=== PATIENT | female | born 1945 | race African-American/Black ===

== ENCOUNTER 2021-08-02 18:02 | Inpatient (IN) | payer MEDICARE, MEDICAID ==
[~2021-08-02] VITALS: Ht 180.3 cm; Wt 148.3 kg
--- NOTE | ~2021-08-02 | EMS ---
[address] [address] EMS Patient Care Report Name: TAHIRA VARMA Room: [address]#: [id number] Admission: 08/02/21 Attend Phys: Maya Agosto MD Discharge: 08/03/21 Date of : 43 Report #: [id number] THIS REPORT FOR: //name// Report Transmitted: 08/04/2021 16:35 EMS Care Summary MERRITT PEARSON Incident [id number] @ 08/02/2021 17:14 Incident Location [address] [place] [address] Patient TOYA VARMA Female, 75 Years 1945 Patient Address [address] [place] [address] Patient History Chronic Obstructive Pulmonary Disease (COPD),Endocrine Condition - Other,Primary osteoarthritis of other joints,Obesity, unspecified,Atrial Fibrillation,Anxiety disorder, unspecified, Patient Allergies , Patient Medications Amlodipine, Aspirin, Gabapentin, Furosemide, Xanax, Chief Complaint Chest Pain Disposition Transported No Lights/[place] Dispatch Reason Chest Pain (Non-Traumatic) Transported To [facility] Narrative [facility] WAS DISPATCHED TO THE LISTED LOCAL ADDRESS FOR CHEST PAIN. ON SCENE, WE CONTACTED FACILITY STAFF AND THE PATIENT INSIDE THE PATIENTS ROOM. [address] [address] EMS Patient Care Report Name: TAHIRA VARMA Room: [address]#: [id number] Admission: 08/02/21 Attend Phys: Maya Agosto MD Discharge: 08/03/21 Date of : 43 Report #: [id number] THE PATIENT WAS ALERT AND LAYING SUPINE IN BED WITH NO OBVIOUS IMMEDIATE LIFE THREATS HOWEVER AUDIBLE CRACKLES COULD BE HEARD. THE PATIENT WAS RECEIVING OXYGEN VIA NASAL cannula AND CONCENTRATOR. FACILITY STAFF PROVIDED A PATIENT PACKET AND STATED THE PATIENT STARTED HAVING CHEST PAIN AROUND 4:00PM. STAFF STATED THE PATIENT HAS SEVERE ANXIETY AND WHEN THIS HAPPENS HER XANEX WILL USUALLY CALM HER DOWN AND MAKE THE CHEST PAIN GO AWAY BUT THIS TIME IT DID NOT. WHEN ASKED ABOUT THE OXYGEN AND THE CRACKLES, STAFF STATED THE patient IS ALWAYS ON TWO LITERS (2 lpm)BUT HER OXYGEN LEVELS HAVE BEEN IN THE LOW 90S. I ASKED STAFF IF THEY HAD INCREASED THE PATIENTS oxygen TO WHICH SHE REPLIED "NO." I HAD FACILITY STAFF INCREASE THE PATIENTS OXYGEN TO FOUR LITERS (4 LPM) WHILE THE PATIENT WAS PLACED ON THE MONITOR. AN ECG WAS OBTAINED AND ASA WAS ADMINISTERED. THE PATIENT WAS INITIALLY UNSURE IF SHE WANTED TO GO TO THE HOSPITAL. IT WAS DETERMINED SHE WOULD BE TRANSPORTED TO THE LISTED LOCAL HOSPITAL FOR FURTHER EVALUATION. USING THE patients BED SHEET, [facility] AND FACILITY STAFF MOVED THE patient OFF HER BED AND ONTO THE STRETCHER WITHOUT INCIDENT. HER NASAL CANNULA WAS ATTACHED TO THE STRETCHERS OXYGEN SUPPLY. THE PATIENT WAS SECURES WITH THE LAP AND SHOULDER BELTS AND TRANSPORTED OUT TO THE AMBULANCE. SHE WAS LOADED AND SECURED WITHOUT INCIDENT. INSIDE THE AMBULANCE, THE PATIENT WAS PLACED BACK ON THE MONITOR. A FULL SET OF VITALS AND LUNG SOUNDS WERE OBTAINED. A PHYSICAL ASSESSMENT WAS COMPLETE. THE PATIENT DENIED ANY DIZZINESS, TINGLING/NUMBNESS IN HER EXTREMITIES, VISION IMPAIRMENTS, NAUSEA, AND PAIN OUTSIDE OF WHAT IS ALREADY STATED. THE PATIENT STATED HAS HAD A HEADACHE FOR THE LAST FEW DAYS AND IS HAVING DIFFICULTY CATCHING HER BREATH. THE PATEINT STATED SHE HAS HAD A PRODUCTIVE COUGH. AN A&A TREATMENT WAS ADMINISTERED AND TRANSPORT WAS INITIATED. VITALS WERE MONITORED EN-ROUTE. PATIENT DEMOGRAPHICS AND MEDICAL history WERE OBTAINED. THE PATIENT REMAINED STABLE DURING TRANSPORT. ONCE THE A&A TREATMENT WAS COMPLETE, THE PATIENT WAS PLACED BACK ON OXYGEN VIA NASAL CANNULA. AT DESTINATION, ALL MONITORING WAS REMOVED. THE patient SIGNED THE PRIVACY AND TRANSFER FORM. SHE WAS UNLOADED FROM THE AMBULANCE AND TAKEN INTO ROOM THREE (3). USING THE STRETCHERS BLANKET, [facility] CRE[facility] AND HOSPITAL STAFF MOVED THE patient OFF THE STRETCHER, ONTO THE HOSPITAL BED WITHOUT INCIDENT. THE PATIENT NASAL CANNULA WAS CONNECTED TO THE HOSPITALS OXYGEN SUPPLY. I GAVE EDIN GREY A VERBAL PATIENT REPORT. SHE SIGNED THE RECEIVING FACILITY FORM, COMPLETING THE transfer OF CARE. [facility] CLEARED THE CALL. Initial Vitals @17:43Pain: 12/10, @17:53Pain: 07/12, @17:24SpO2: 95, @17:34SpO2: 93, @17:37SpO2: 95, @17:39SpO2: 100, @17:44SpO2: 100, @17:47SpO2: 100, @17:53SpO2: 97, [place] [address] EMS Patient Care Report Name: TAHIRA VARMA Room: [address] IN [facility]#: [id number] Admission: 08/02/21 Attend Phys: Maya Agosto MD Discharge: 08/03/21 Date of : 43 Report #: [id number] @17:22 @17:37P: 89,R: 18,BP: 126/67, @17:47P: 81,R: 18,BP: 130/60, @17:53P: 84,R: 18,BP: 114/80, @17:37GCS: 15, @17:47GCS: 15, @17:53GCS: 15, Assessments @17:18MENTAL:SKIN:HEENT:LUNG SOUNDS:ABDOMEN:PELVIS//GI:EXTREMITIES:PULSE:NEURO: Impression Angina pectoris Procedures @17:22 Aspirin - 243.000 Milligrams (mg) - Oral Response: Unchanged @17:37 Albuterol - 2.500 Milligrams (mg) - Inhalation Response: Improved @17:37 Ipratropium - 0.020 Milligrams (mg) - Inhalation Response: Improved @PTAOxygen Complications: , @17:37 Oxygen Complications: , Response: Improved @17:47 Oxygen Complications: , Response: Unchanged @17:22 12-Lead ECG Response: UnchangedSucceeded 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,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 Complications: ,, 16:00,Call Received 17:14,Dispatch Notified 17:14,Psap Call 17:14,Dispatched 17:15,En Route 17:17,On Scene 17:18,At Patient 17:22,Aspirin - 243.000 Milligrams (mg) - Oral,Response: Unchanged 17:22,12-Lead ECG,Response: UnchangedSucceeded, 17:22,BP: / M,PULSE: ,RR: R,SPO2: Ox,ETCO2: ,BG: ,PAIN: ,GCS: , 17:24,BP: / M,PULSE: ,RR: R,SPO2: 95 Ox,ETCO2: ,BG: ,PAIN: ,GCS: , 17:34,BP: / M,PULSE: ,RR: R,SPO2: 93 Ox,ETCO2: ,BG: ,PAIN: ,GCS: , 17:37,Albuterol - 2.500 Milligrams (mg) - Inhalation,Response: Improved 17:37,Ipratropium - 0.020 Milligrams (mg) - Inhalation,Response: Improved 17:37,Oxygen Complications: ,,Response: Improved 17:37,BP: / M,PULSE: ,RR: R,SPO2: 95 Ox,ETCO2: ,BG: ,PAIN: ,GCS: , 17:37,BP: 126/67 M,PULSE: 89,RR: 18 R,SPO2: Ox,ETCO2: ,BG: ,PAIN: ,GCS: , 17:37,BP: / M,PULSE: ,RR: R,SPO2: Ox,ETCO2: ,BG: ,PAIN: ,GCS: 15, 17:38,[place] [address] EMS Patient Care Report Name: VARMATAHIRA Room: [address]#: [id number] Admission: 08/02/21 Attend Phys: Maya Agosto MD Discharge: 08/03/21 Date of : 43 Report #: [id number] 17:39,BP: / M,PULSE: ,RR: R,SPO2: 100 Ox,ETCO2: ,BG: ,PAIN: ,GCS: , 17:43,BP: / M,PULSE: ,RR: R,SPO2: Ox,ETCO2: ,BG: ,PAIN: 6,GCS: , 17:44,BP: / M,PULSE: ,RR: R,SPO2: 100 Ox,ETCO2: ,BG: ,PAIN: ,GCS: , 17:47,Oxygen Complications: ,,Response: Unchanged 17:47,BP: / M,PULSE: ,RR: R,SPO2: 100 Ox,ETCO2: ,BG: ,PAIN: ,GCS: , 17:47,BP: 130/60 M,PULSE: 81,RR: 18 R,SPO2: Ox,ETCO2: ,BG: ,PAIN: ,GCS: , 17:47,BP: / M,PULSE: ,RR: R,SPO2: Ox,ETCO2: ,BG: ,PAIN: ,GCS: 15, 17:53,BP: / M,PULSE: ,RR: R,SPO2: Ox,ETCO2: ,BG: ,PAIN: 1,GCS: , 17:53,BP: / M,PULSE: ,RR: R,SPO2: 97 Ox,ETCO2: ,BG: ,PAIN: ,GCS: , 17:53,BP: 114/80 M,PULSE: 84,RR: 18 R,SPO2: Ox,ETCO2: ,BG: ,PAIN: ,GCS: , 17:53,BP: / M,PULSE: ,RR: R,SPO2: Ox,ETCO2: ,BG: ,PAIN: ,GCS: 15, 17:59,At Destination 18:18,Call Closed Disclaimer v1.1 Copyright 2021 [employer] This EMS Care Summary contains data elements from the applicable legal record (which may be displayed differently). It is designed to provide pertinent information for the following purposes: continuity of care, clinical quality, and state data reporting. The complete legal record is available to ED staff and administrators of the receiving hospital in [employer] Patient Tracker. All data is provided "as is."
[2021-08-02 18:10] VITALS: BP 115/54
[2021-08-02] MEDS ORDERED: APAP W/CODEINE1 TA2 PO (18:20)
[2021-08-02] MEDS ORDERED: NORVASC5 MG PO (18:20)
[2021-08-02] MEDS ORDERED: ASA81BEC PO (18:20)
[2021-08-02] MEDS ORDERED: SLOW FE142 MG PO (18:21)
[2021-08-02] MEDS ORDERED: FAMOTIDINE 20 M20 MG PO (18:21)
[2021-08-02] MEDS ORDERED: NEURONTIN300 MG PO (18:21)
[2021-08-02] MEDS ORDERED: HYDRALAZINE 5050 MG PO (18:21)
[2021-08-02] MEDS ORDERED: CATAPRES0.2 MG PO (18:21)
[2021-08-02] MEDS ORDERED: MIRALAX119 GM PO (18:22)
[2021-08-02] MEDS ORDERED: IPRATROPIU0.2 MG/1 M INH (18:22)
[2021-08-02] MEDS ORDERED: PERCOCET 5-3251 EACH PO (18:22)
[2021-08-02] MEDS ORDERED: LASIX 40 MG TAB40 MG PO (18:22)
[2021-08-02] MEDS ORDERED: LINZESS145 MCG PO (18:22)
[2021-08-02] MEDS ORDERED: TAMSULOSIN HCL0.4 MG PO (18:23)
[2021-08-02] MEDS ORDERED: SENNA PLUS TAB1 EACH PO (18:23)
[2021-08-02] MEDS ORDERED: REGLAN 10 MG TA10 MG PO (18:23)
[2021-08-02] MEDS ORDERED: XANAX 0.25 MG0.25 MG PO (18:23)
[2021-08-02] MEDS ORDERED: ZOLOFT 50 MG TA50 MG PO (18:24)
[2021-08-02 20:51] LABS: HEMATOCRIT 32.6 % (37.0-47.0); HEMOGLOBIN 9.8 gm/dL (12.0-15.0); MCH 25.7 pg (26.0-34.0); MCHC 30.1 g/dL (28.0-37.0); MCV 85.4 fL (80.0-100.0); MPV 7.8 fl. (7.2-11.1); NUCLEATED RBCS 0 /100WBC; PLATELET COUNT* 285 thou/uL (150-400); RBC 3.82 mil/uL (4.20-5.00); RDW-CV 18.6 % (10.5-14.5); WBC 11.8 thou/uL (4.0-11.0)
[2021-08-02 20:53] LABS: CALCIUM 8.6 mg/dL (8.5-10.1); CREATININE 1.5 mg/dL (0.6-1.3); POTASSIUM 3.7 mmol/L (3.5-5.1)
[2021-08-02 21:04] LABS: TOTAL BILIRUBIN 0.3 mg/dL (<0.1-1.0); TOTAL PROTEIN 7.6 g/dL (6.4-8.2)
[2021-08-02 21:42] LABS: ABSOLUTE LYMPHOCYTES 0.5 thou/uL (0.8-5.3); ABSOLUTE NEUTROPHILS 11.3 thou/uL (1.6-8.1)
[2021-08-02 21:43] LABS: PLATELET ESTIMATE ADEQUATE; POLYCHROMASIA Occasional
[2021-08-02 21:45] LABS: ANISOCYTOSIS 1+
[2021-08-03 01:24] VITALS: BP 115/54
[2021-08-03 04:00] VITALS: BP 174/73
[2021-08-03] MEDS ORDERED: SLOW FE142 MG PO (05:25)
[2021-08-03] MEDS ORDERED: PAIN RELIEF325 MG PO (05:28)
[2021-08-03] MEDS ORDERED: IPRAT-ALBUT 0.5-3 ML INH (05:30)
--- NOTE | 2021-08-03 05:44 | NUR ---
ASSUMED CARE OF PT 08/03/21 AT APPROX 0130. PT A&OX4, VSS ON 5L O2 NC, IV SALINE LOCKED, SR ON TELE MONITOR. PUREWICK IN PLACE. REPOSIONED Q2H. IV PRN PAIN MED REQUESTED FOR BLE PAIN, GIVEN ORDERED. PT RESTING IN BED, WILL CONTINUE TO MONITOR.
[2021-08-03 07:52] VITALS: BP 161/65
--- NOTE | 2021-08-03 08:36 | EKG ---
[place] [address] ELECTROCARDIOGRAM REPORT Name: TAHIRA VARMA Room: [address] IN [facility].#: [id number] Admission: 08/02/21 Attend Phys: Maya Agosto, Discharge: Date of : 43 Date of Service: 08/02/211906 Report #: [id number] THIS REPORT FOR: //name// [facility] ED Test Date: 2021-08-02 Test Time: 19:07:36 Pat Name: TAHIRA VARMA Department: Room: [facility] Gender: F [employer]: [place] : 1945 Requested By: Braulio Roland Order Number: [id number] MD: Jason Bhatia Measurements Intervals [place] Rate: 68 P: -16 AZ: 247 QRS: -105 QRSD: 174 T: 14 QT: 479 QTc: 510 Interpretive Statements Sinus rhythm Prolonged [place] interval Consider left atrial enlargement RBBB and LAFB No previous ECG available for comparison Electronically Signed On 08-03-2021 8:36:01 POULTRY TRIMMER by Jason Bhatia [email or web address] <ELECTRONICALLY SIGNED> By: Jason Bhatia MD, FACC 08/03/21 0836 [id number] Jason Bhatia MD, [facility] /EPI
[2021-08-03 12:00] VITALS: BP 147/57
[2021-08-03] MEDS ORDERED: ADVAIR 100-501 EACH INH (13:41)
[2021-08-03] MEDS ORDERED: DOXYCYCLINE 10100 MG PO (13:41)
--- NOTE | 2021-08-03 15:57 | NUR ---
P TO DISCHARGE BACK TO [facility]. REPORT CALLED TO LISA. TRANSPORTATION SET FOR 1830.
--- NOTE | 2021-08-03 16:59 | NUR ---
CM ASSESSMENT ASSESSMENT COMPLETED WITH PT GRANDDAUGHTER EMERSON VARMA [phone]. PT LIVES [facility]. [facility] COMPLETES PT ADLS. PT USES A WHEELCHAIR AND 2L OF O2. PT TRANSITIONED TO [facility] FROM [facility]. PT HAS NO HX OR ARU AOR HH. PT MED CLEAR FOR DC BACK TO [facility] ([phone]) WITH TRANSPORT TO BE PROVIDED BY [facility] ([phone]) AND TRANSPORT TO [facility] AT 630PM.
== END 2021-08-03 18:57 | DRG 202 ==
LOC: M.ERS 18:02 → M.TBA-ER 21:10 → M.2W 21:10
PROVIDERS: Family Medicine; ADMIT Internal Medicine; ATTEND Internal Medicine
DX: J20.9 Acute bronchitis, unspecified (principal); I50.32 Chronic diastolic (congestive) heart failure; J44.0 Chronic obstructive pulmonary disease with (acute) lower respiratory infection; I13.10 Hypertensive heart and chronic kidney disease without heart failure, with stage 1 through stage 4 chronic kidney disease, or unspecified chronic kidney disease; E11.22 Type 2 diabetes mellitus with diabetic chronic kidney disease; N18.30 Chronic kidney disease, stage 3 unspecified; E66.01 Morbid (severe) obesity due to excess calories; Z68.42 Body mass index [BMI] 45.0-49.9, adult; Z20.822 Contact with and (suspected) exposure to COVID-19; E11.9 Type 2 diabetes mellitus without complications; Z88.8 Allergy status to other drugs, medicaments and biological substances